=== PATIENT | female | born 1955 | race Caucasian/White ===

== ENCOUNTER 2016-06-03 12:37 | Day surgery (SDC) | payer OTHER ==
[~2016-06-03] VITALS: Ht 170.2 cm; Wt 100.0 kg
[~2016-06-03 12:37] MED LIST: ACYC400T2 PO; BUPR300T51 PO; DIPH25CA6 PO; HYDR-4003 PO; MAGN250T29 PO; MULT1CAP33 PO; OMEG-38 PO; RANI150C4 PO; VITA-242 PO; [UNRECOGNIZED DRUG - CODE] PO; fentaNYL-PF 50 mCg/mL 2 mL Inj IVPUSH PRN
[2016-06-03 12:58] VITALS: BP 121/72; PULSE 66; RESP 14; O2SAT 97
[2016-06-03] MEDS: 0.9% Sodium Chloride 1,000 ML IV PRN ×3 (14:00→14:55)
[2016-06-03] MEDS ORDERED: fentaNYL-PF 50 mCg/mL 2 mL Inj IVPUSH PRN (14:05)
[2016-06-03 15:09] VITALS: BP 122/68; PULSE 68; RESP 16; O2SAT 96
[2016-06-03 15:20] VITALS: BP 98/66; PULSE 77; RESP 16; O2SAT 96
[2016-06-03 15:24] VITALS: BP 111/49; PULSE 79; RESP 16; O2SAT 96
--- NOTE | 2016-06-03 16:10 | ENDO ---
[address] [address] ENDOSCOPY PROCEDURE PATIENT: WICHO CH : 1955 MR#: [id number] ADMIT: 06/03/2016 JOB ID: [id number] DATE OF SERVICE: 06/03/2016 PREPROCEDURAL DIAGNOSIS: Colon cancer screening. POSTPROCEDURAL DIAGNOSIS: Colon cancer screening. PROCEDURE PERFORMED: Colonoscopy with biopsy. SURGEON: Lore Nicholas MD. INSTRUMENT: Olympus [id number]. MEDICATIONS: 1. Versed 8 mg. 2. Fentanyl 150 mcg. FINDINGS: 1. A 5 mm polyp in the cecum, removed with cold forceps biopsies. 2. Sigmoid diverticulosis. HISTORY OF PRESENT ILLNESS: This is a 61-year-old woman who underwent a screening colonoscopy 13 years ago. She was due for another, and therefore was scheduled for this one. Her previous colonoscopy had polyps removed, and she was told they were benign, but we do not have the pathology records. DESCRIPTION OF PROCEDURE: The patient was brought to the endoscopy suite, and placed in left lateral decubitus position. Moderate anesthesia was induced. A digital rectal examination was performed and was normal. External examination revealed a small external hemorrhoidal skin tag, noninflamed or thrombosed. The colonoscope was advanced to the cecum, which was identified by the presence of the ileocecal valve and coalescence of the tenia. There was a small, 5 mm polyp in the cecum, which was removed with cold forceps biopsies. The prep was fair. The withdrawal time was 16 minutes, as a fair amount of the mucosa had to be rinsed in order to adequately visualize it. No additional polyps, strictures, or masses were seen. As noted above, sigmoid diverticulosis was seen. Retroflexed examination of the rectum revealed normal appearing internal hemorrhoids. The endoscope was withdrawn. The patient tolerated the procedure well. COMPLICATIONS: None. ESTIMATED BLOOD LOSS: None. SPECIMENS: Cecal polyp. Addendum: Final pathology revealed tubular adenoma. I recommend repeat colonoscopy in 5 years. MTDD
--- NOTE | 2016-06-07 11:27 | PATH ---
SURGICAL PATHOLOGY Attending Physician:Lore Nicholas MD CASE STATUS: Signed Out PATIENT NAME: WICHO CH PID: [id number] : 1955 DATE COLLECTED:06/03/2016 00:00 SPECIMEN: Colon, Biopsy CLINICAL HISTORY: CECAL POLYP X1 FINAL DIAGNOSIS: 1.CECAL POLYP: TUBULAR ADENOMA INVOLVING THREE BIOPSY FRAGMENTS. ICD10 code D12.0 GROSS DESCRIPTION: The specimen is received in one formalin filled container labeled with the patient's name, sublabeled "cecal polyp" and consists of 4 portions of tissue which aggregate to 0.4 x 0.4 x 0.2 CM. The specimen is entirely submitted in one cassette. 06/04/2016 [facility] MICRO DESCRIPTION: See diagnosis. ICD-9 CODES: CPT CODES: 1: 12605 Electronically Signed Out Aamir Kuhn MD [facility] Pathology [facility] [address], [place] [address] Technical component performed at [employer], [facility] [address], [place], [address]
[2016-06-18] MEDS ORDERED: HYDR-4003 PO (15:28)
== END 2016-06-03 23:59 | disposition home or self-care (01) ==
LOC: END 12:37
PROVIDERS: ATTEND Surgery
DX: Z12.11 Encounter for screening for malignant neoplasm of colon (principal); D12.0 Benign neoplasm of cecum; K57.30 Diverticulosis of large intestine without perforation or abscess without bleeding; Z86.010 Personal history of colon polyps; K21.9 Gastro-esophageal reflux disease without esophagitis; F41.8 Other specified anxiety disorders; M19.90 Unspecified osteoarthritis, unspecified site; G43.909 Migraine, unspecified, not intractable, without status migrainosus; E55.9 Vitamin D deficiency, unspecified; R73.02 Impaired glucose tolerance (oral); M50.30 Other cervical disc degeneration, unspecified cervical region; Z87.891 Personal history of nicotine dependence
CPT/HCPCS: 45380; 99153; G0500; J2250; J3010; J7030

== ENCOUNTER 2016-06-23 06:12 | Day surgery (SDC) | payer OTHER ==
[2016-06-23] VITALS (11 sets, daily range): BP systolic 110–138; BP diastolic 61–77; PULSE 72–85; RESP 13–18; O2SAT 92–97
[~2016-06-23] VITALS: Ht 177.8 cm; Wt 102.0 kg
[~2016-06-23 06:12] MED LIST changes: +Lactated Ringer's 1,000 ML IV SCH; -fentaNYL-PF 50 mCg/mL 2 mL Inj IVPUSH PRN
[2016-06-23] MEDS ORDERED: EPHEDrine/NS 5 mg/mL 5 mL Syringe ONE (06:13)
[2016-06-23] MEDS ORDERED: Ondansetron 2 mg/mL 2 mL Inj ONE (06:13)
[2016-06-23] MEDS ORDERED: Phenylephrine/NS 100 mCg/mL 10 mL Syringe IVPUSH ONE (06:13)
[2016-06-23] MEDS ORDERED: Propofol 10,000 mCg/mL 20 mL Inj ONE (06:13)
[2016-06-23] MEDS ORDERED: fentaNYL-PF 50 mCg/mL 2 mL Inj ONE (06:13)
[2016-06-23] MEDS ORDERED: Dexamethasone 4 mg/mL Inj ONE (06:13)
[2016-06-23] MEDS ORDERED: Lidocaine PF 1% 30 mL Inj ONE (06:13)
[2016-06-23] MEDS ORDERED: Rocuronium 10 mg/mL 5 mL Inj ONE (06:13)
[2016-06-23] MEDS ORDERED: Lactated Ringer's 1,000 ML IV ONE (06:53)
--- NOTE | 2016-06-23 07:59 | PCM.HPANE ---
Patient Data Surgeon Admitting Provider: Attending Provider:Lore Nicholas MD Primary Care Physician:Madelin Azevedo Other Provider:April Hein Anesthesia Reason for Visit Cholecystitis Ht/WT & BMI Height (Feet): 5 Height (Inches): 10.00 Weight (Kilograms): 102 Body Mass Index 32.00 Past Anesthesia History Anesthesia History: Denies:: Abnormal Airway, Anesthesia Reactions, Difficult Intubation, Fam Anesthesia Reaction, Fam Malignant Hypertherm, Malignant Hyperthermia Diabetes History Hx Diabetes?: No MRSA MRSA: No Medications Home Meds Incl Beta Carlita: No Reported Medications Hydrocodone-Acetaminophen 5-325 mg 1 Each Tablet1 Tablet PO Q6H PRN For Pain Ref 0 06/18/16 Bupropion ER (Wellbutrin XL)300 Mg Tab.er.[id number] Mg PO DAILY Ref 0 06/02/16 Vitamin B Comp W-C/FA/Zinc (Sheila B Strong with C & Zinc Tb)1 Each Tablet1 Each PO BID 06/02/16 diphenhydrAMINE HCl (Benadryl)25 Mg [id number] Mg PO HS PRN For Sleep Ref 0 06/02/16 Ranitidine 150 Mg [id number] Mg PO BID Ref 0 06/02/16 Multivitamin (Multivitamins)1 Each Capsule1 Each PO DAILY 06/02/16 Magnesium Oxide (Magnesium)250 Mg [id number] Mg PO DAILY 06/02/16 Glucosam/Chond/MSM/[place]/Hyal (Glucosamine-Chondr Complex Tab)500-66.7MG Tablet1 Each PO BID 06/02/16 [place]-3/Dha/Epa/Fish Oil (Fish Oil 1,000 mg Softgel)1 Each Capsule1 Each PO DAILY 06/02/16 Acyclovir 400 Mg [id number] Mg PO BID PRN FLARE UP Ref 0 06/02/16 History History of ENT Problems?: Yes HEENT History: Positive for:: Sinus Problem (SINUSITIS) Denies:: Abnormal Airway Difficult Intubation Dysphagia Hearing Problem Other HEENT Pertinent History: S/P TONSILLECTOMY Hx of Heart Problems?: No Cardiovascular History: Denies:: Heart Murmur Hypertension Hx of Respiratory Problem?: Yes Respiratory History: Positive for:: Asthma Denies:: Use of C-PAP Machine Use of Inhalers / NEBS Hx Neurologic Problems?: Yes Neurological History: Positive for:: Headaches Denies:: CVA Dementia Other Neurological Pertinent: HX BLUNT HEAD TRAUMA 2011, HSV Hx of GI Problems?: Yes Gastrointestinal History: Positive for:: Gall Bladder Disease (CHOLECYSTITIS= CURRENT PROBLEM C/OF NAUSEA INTERMITTANTLY) Gastroesphageal Reflux Liver Disease (U/S SHOWS HEPATIC CYSTS) Denies:: Cirrhosis Diverticulitis (DIVERTICULOSIS) Hiatal Hernia Rectal Bleeding (HX COLON POLYPS,HEMORRHOIDS) Hx of Problems?: Yes Genitourinary History: Positive for:: Kidney Stones (U/S SHOWS RU POLE NON OBSTRUCTING STONE) Urinary Tract Infection (HX OF) Other Pertinent History: HX ADRENAL ADENOMA Female Hx: Positive for:: Problems with Breasts? (S/P RT BENIGN BREAST BX HX FIBROCYSTIC BREAST DISEASE) Denies:: Currently (tubal) Skin History: Positive for:: History Skin Disorders? (S/P EXC MELANOMA LT CHEEK HX ACNE,ECZEMA) Denies:: Pressure Ulcers Hx Musculoskeletal Problems?: Yes Musculoskeletal History: Positive for:: Musculoskeletal Trauma (HX OF MCL TEAR ) Osteoarthritis Denies:: Joint Replacement Hx of Psycho/Social Problems?: Yes Psycho Social History: Positive for:: Anxiety Hx Depression Hx Surgeries?: Yes (TONSILLECTOMY,C/S.BTL,RT BREAST BX,CERVICAL CONE BX,EXC LT CHEEK MELANOMA) Hx Any Other Health Problems?: Yes Other History: Positive for:: Cancer (??CERVICAL??,MELANOMA LT CHEEK) Endocrine Disease (HX ADRENAL ADENOMA) Denies:: Hospitalization Thyroid Disease History Blood Transfusions: Denies:: Blood Transfusions Hx Diabetes: No Hx Alcohol Use: No (QUIT 2015 R/T ALLERGY)Hx Substance Use: Yes (MARIJUANA DAILY) Smoking Status: Former Smoker Have You Smoked inLast 12 mo: NoApprox How Many Cigarettes/day: 5-8 C/DAY X 2YRS Stop/Bang S-Snoring: Do You Snore Loudly: No T-Tired: feel tired, fatigued: No O-Obsered: Observed not breath: No P-Blood Pressure: treated: No B- Body Mass Index > 35 kg/m2: No A- Age over 50: Yes N- Neck Large Circumference: No G- Gender Male: No TRENT Total Score: 1 Risk Assessment Category Category 1A: Patient has history of documented sleep apnea, and HAS NOT received any narcotic, sedative or anesthesia administration during this stay. Category 1B: Patient has history of documented sleep apnea, and HAS received any narcotic , sedative or anesthesia administration during this stay Category 2: Patient has SUSPECTED Obstructive Sleep Apnea, and HAS received any narcotic , sedative or anesthesia administration during this stay. Category 3: Patient has SUSPECTED Obstructive Sleep Apnea and HAS NOT received narcotic, sedative or anesthesia administration during this stay. Category 4: Outpatient in Procedural Areas with known sleep apnea or who screen positive for High Risk via the STOP/BANG questionnaire. Exam Exam Vital Signs Vital Signs Date Time Temp Pulse Resp B/P Pulse Ox O2 Delivery O2 Flow Rate FiO2 06/23/16 06:54 36.2 72 18 122/76 97 Room Air General Appearance: Alert, Oriented X3, Cooperative, No Acute Distress HEENT/AIRWAY: MP 1 Lungs: Normal Air Movement Heart: Regular Rate/Rhythm Meds/Labs/Diagnostics Admission Meds Current Medications Lactated Ringer's (Lr) 1,000 ml @ ud STK-MED ONCE IV Last administered on 06:53; Start 06/23/16 at 06:53; Stop 06/23/16 at 06:54; Status DC Gabapentin (Neurontin) 600 mg STK-MED ONCE .ROUTE Last administered on 07:35; Start 06/23/16 at 07:27; Stop 06/23/16 at 07:28; Status DC Celecoxib (CeleBREX) 200 mg STK-MED ONCE .ROUTE Last administered on 06/23/16 07:35; Start 06/23/16 at 07:27; Stop 06/23/16 at 07:28; Status DC Scopolamine (Transderm-Scop Patch) 1.5 mg STK-MED ONCE TOPICAL Last administered on 06/23/16 07:35; Start 06/23/16 at 07:27; Stop 06/23/16 at 07:28; Status DC Acetaminophen (Tylenol) 975 mg STK-MED ONCE PO Last administered on 06/23/16 07 :35; Start 06/23/16 at 07:27; Stop 06/23/16 at 07:28; Status DC Plan Impression Patient chart reviewed, patient interviewed and anesthestic plan with risks, benefits, and alternatives discussed, and informed consent obtained. NPO Status: 06/22@2200, water @0400 ASA Physical Status: ASA2 Mod Systemic Disease Anesthetic Plan: GA Bene/Risks/Altern/Consents: Yes HP Complete Prior to Induction: Yes Mary Hinson DO Jun 23, 2016 07:59
[2016-06-23] MEDS ORDERED: Bupivacaine-MPF 0.5% W/EPI 30 mL Inj INFILTRATE ONE (08:19)
[2016-06-23] MEDS ORDERED: Lactated Ringer's 1,000 ML IV SCH (08:52)
[2016-06-23] MEDS ORDERED: Lactated Ringer's 500 ML IV PRN (08:52)
[2016-06-23] MEDS ORDERED: EPHEDrine Sulfate 50 mg/mL Inj IVPUSH PRN (08:55)
[2016-06-23] MEDS ORDERED: MetoCLOpramide 5 mg/mL 2 mL Inj IVPUSH PRN (08:55)
[2016-06-23] MEDS ORDERED: Ondansetron 2 mg/mL 2 mL Inj IVPUSH PRN (08:55)
[2016-06-23] MEDS ORDERED: fentaNYL-PF 50 mCg/mL 2 mL Inj IVPUSH PRN (08:55)
[2016-06-23] MEDS ORDERED: HYDROmorphone 1 mg/mL Inj IVPUSH PRN (08:55)
[2016-06-23] MEDS ORDERED: Phenylephrine 10,000 mCg/mL Inj IVPUSH PRN (08:55)
[2016-06-23] MEDS ORDERED: oxyCODONE-Acetamin 5-325 mg Tablet PO PRN (10:15)
--- NOTE | 2016-06-23 10:23 | PCM.SURGOP ---
Surgical Operative Report Date of Service: Jun 23, 2016 Pre Operative Diagnosis Chronic cholecystitis Post Operative Diagnosis Chronic cholecystitis Procedure: Laparoscopic cholecystectomy with intraoperative cholangiogram, with interpretation Surgeon and Operations Tech: Surgeon: Lore Nicholas M.D. Assistants: Curtis Rodrigues PA-C A surgical aides teacher was necessary for retraction and dissection Indication for Procedure This is a 61-year-old woman who presented to her primary care physician's office with ongoing nausea and a persistently elevated alkaline phosphatase. Abdominal ultrasound revealed a single large gallstone possibly obstructing the outlet to the cystic duct. The patient desired cholecystectomy, in part to prevent future complications from this large gallstone, and also to ameliorate the potential low-grade symptoms of nausea she was experiencing from it. Findings: 1. Mildly inflamed gallbladder with overlying adhesions. 2. Normal intraoperative cholangiogram with a long cystic duct and adequate visualization of the right and left hepatic ducts, common hepatic duct, common bile duct, with good filling of the duodenum. Two tiny bubbles were seen in the left hepatic duct. Procedure Details The patient was brought to the operating room and placed in supine position. General endotracheal anesthesia was smoothly induced. A warming blanket and SCDs were placed. A foot board was placed. The operative field was prepped and draped in sterile fashion. A pause was performed to confirm the correct patient, procedure, site, and side. A transverse 10 mm incision was made just below the umbilicus. The abdomen was entered under direct vision using a Bienvenido port. Three additional 5 mm ports were placed in the epigastrium and right upper quadrant. The gallbladder was identified and lifted cephalad. There were moderate adhesions due to cholecystitis, and substantial pericholecystic edema. The duodenum was gently dissected off of the gallbladder. Dissection then proceeded to identify the cystic duct, cystic artery, and to fully expose the cystic plate. Once there were two and only two structures entering the gallbladder, a clip was placed on the gallbladder side of the cystic duct. A ductotomy was made and a cholangiocatheter was inserted. A cholangiogram was performed and the cystic duct was long and patent with normal filling of the common hepatic duct, common bile duct, and right and left hepatic ducts, as noted above. There were 2 tiny filling defects in the left hepatic duct which disappeared as the ducts were flushed, most consistent with bubbles. The cholangiocatheter was then removed, two clips were placed on the cystic duct and it was divided. The cystic artery was clipped on both the gallbladder side and the patient's side and divided. There appeared to be a tiny second branch of the cystic artery filling directly into the gallbladder, which was also clipped on both the patient and gallbladder side and divided. The gallbladder was then removed from its bed on the liver with electrocautery. Prior to completely removing the gallbladder, a final look was taken at the stump of the cystic artery and cystic duct, and there was no bleeding or bile leak. The gallbladder was then fully removed from the liver and placed in an EndoCatch bag and removed. The three 5 mm ports were removed under direct vision, the 10 mm mid abdominal port was removed, and a [id number] 0 PDS was used to close the fascia. There was no fascial defect at the end of the case. 0.5% Marcaine with epinephrine was infused at all port sites for postoperative analgesia. The skin was closed with subcuticular 4-0 Monocryl. Sterile dressings were placed. Sponge, instrument, and needle counts were correct at the end of the procedure. The patient was awakened from general anesthesia and taken to the postoperative care unit in good condition. Complications There were no periprocedural complications identified. Surgical Specimen Removed: Yes Specimen sent to Pathology: Yes Surgical Specimen description: Gallbladder Anesthetic Plan: GA Grafts, Implants: None Output, Estimated Blood Loss: 2 (ml) Blood Administration during delgado: No Lore Nicholas MD Jun 23, 2016 10:23
--- NOTE | 2016-06-23 11:11 | PCM.ANEP2 ---
Post Anesthesia Evaluation ASA/CMS Post Anesthesia VS in Patient's Normal Range?: Yes Resp Stable; Airway Patent?: Yes CV Function & Hydration Stable: Yes Mental Status Recovered?: Yes Pain control Satisfactory?: Yes N/V Control Satisfactory?: Yes Mary Hinson DO Jun 23, 2016 11:11
--- NOTE | 2016-06-23 11:11 | PCM.ANEP1 ---
Post Anesthesia Phase 1 PACU Phase 1 Assessment Date of Service: Jun 23, 2016 Vital Signs Vital Signs Date Time Temp Pulse Resp B/P Pulse Ox O2 Delivery O2 Flow Rate FiO2 06/23/16 10:50 79 13 110/61 93 Nasal Cannula 2 06/23/16 10:45 36.7 80 18 115/69 93 Nasal Cannula 2 06/23/16 10:15 85 15 122/69 93 Nasal Cannula 2 06/23/16 10:10 78 14 116/70 94 Simple Mask 8 06/23/16 10:05 78 13 126/72 94 Simple Mask 8 06/23/16 10:00 36.2 75 16 138/77 96 Simple Mask 10 06/23/16 06:54 36.2 72 18 122/76 97 Room Air Anesthetic Administered: GA Level of Alertness: Sleeping, hard to arouse IQBAL's with Equal Strength: Yes Pain: No Nausea or Vomiting: No Airway Device: Oralpharangeal Airway Oxygen Delivery: Simple Mask Lungs: Normal Air Movement Mary Hinson DO Jun 23, 2016 11:11
--- NOTE | 2016-06-23 12:42 | DRSVH ---
PROCEDURE: X-RAY OPERATIVE CHOLANGIOGRAM ([id number]) INDICATIONS: CHOLECYSTITIS COMPARISON: Bibiana Tavarez, , US ABDOMEN, 03/10/2016, 9:49. FINDINGS: Biliary ducts: The surgeon injected contrast into the biliary ducts after cannulation of the cystic duct stump. Visualized intra- and extrahepatic bile ducts are normal in caliber, without strictures. No intraluminal filling defects to suggest retained ductal stones or sludge. No evidence for iatro genic ductal injury. Duodenum: Contrast flows promptly through the sphincter of Oddi into the duodenum, which appears nor mal in caliber. IMPRESSION: Normal operative cholangiogram. Dictated by: Dejuan GIRON Interpreted: Angie Castañeda MD on 06/23/2016 at 12:42 Transcribed by: SANTOS on 06/23/2016 at 12:42 Approved by: Angie Castañeda M.D. on 06/23/2016 at 16:43
--- NOTE | 2016-06-24 13:47 | PATH ---
SURGICAL PATHOLOGY Attending Physician:Lore Nicholas MD CASE STATUS: Signed Out PATIENT NAME: WICHO CH PID: [id number] : 1955 DATE COLLECTED:06/23/2016 16:27 SPECIMEN: Gallbladder CLINICAL HISTORY: CHOLECYSTITIS 1). GALLBLADDER FINAL DIAGNOSIS: 1.GALLBLADDER: CHOLELITHIASIS WITH ASSOCIATED MILD CHRONIC CHOLECYSTITIS. ICD10 CODE K80.66 GROSS DESCRIPTION: The specimen is received in one formalin filled container labeled with the patient's name, sublabeled "gallbladder" and consists of an opened 7.5 x 3.0 x 2.0 CM gallbladder. The serosa is smooth. The wall is 0.2-0.3 CM in thickness. The mucosa is a light carlin and slightly rough. The lumen contains a yellow-green calculus which measures 3.0 x 2.0 x 2.0 CM. 5 dental detail representative sections are submitted in one cassette. 06/23/2016 [facility] MICRO DESCRIPTION: See diagnosis. ICD-9 CODES: CPT CODES: 1: 39806 Electronically Signed Out Aamir Kuhn MD [facility] [address], [place] [address] Technical component performed at [facility], [address] [place] [address] [address], [place], [address]
== END 2016-06-23 23:59 | disposition home or self-care (01) ==
LOC: SAS 06:12
PROVIDERS: ATTEND Surgery
DX: K80.10 Calculus of gallbladder with chronic cholecystitis without obstruction (principal); K21.9 Gastro-esophageal reflux disease without esophagitis; F41.9 Anxiety disorder, unspecified; F32.9 Major depressive disorder, single episode, unspecified; M19.90 Unspecified osteoarthritis, unspecified site; F17.210 Nicotine dependence, cigarettes, uncomplicated; J45.909 Unspecified asthma, uncomplicated; Z86.010 Personal history of colon polyps
CPT/HCPCS: 47563; 74300; J1100; J2370; J2405; J3010; J7120; Q9967